=== PATIENT | female | born 1975 | race Caucasian/White ===

== ENCOUNTER 2020-08-27 15:02 | Emergency (ER) | payer MEDICAID ==
[~2020-08-27] VITALS: Ht 162.6 cm; Wt 87.1 kg
[2020-08-27] MEDS ORDERED: TRILEPTAL600 MG PO (15:19)
[2020-08-27] MEDS ORDERED: TOPROL XL25 MG PO (15:20)
[2020-08-27] MEDS ORDERED: BUSPIRONE HCL15 MG PO (15:20)
[2020-08-27] MEDS ORDERED: ZOLOFT100 MG PO (15:21)
[2020-08-27] MEDS ORDERED: HYZAAR 50-12.51 EACH PO (15:21)
[2020-08-27] MEDS ORDERED: AMBIEN 10 MG TA10 MG PO (15:22)
[2020-08-27] MEDS ORDERED: GABAPENTIN100 MG PO (15:22)
[2020-08-27] MEDS ORDERED: METFORMIN HCL500 M3 PO (15:22)
[2020-08-27 16:14] VITALS: BP 114/62
== END 2020-08-27 16:14 | disposition home or self-care (01) ==
LOC: M.ERS 15:02
DX: F41.1 Generalized anxiety disorder (principal); F43.0 Acute stress reaction; Z79.899 Other long term (current) drug therapy; Z88.6 Allergy status to analgesic agent; Z88.8 Allergy status to other drugs, medicaments and biological substances